=== PATIENT | female | born 2000 | race Caucasian/White ===

== ENCOUNTER 2018-03-20 18:13 | Emergency (ER) | payer OTHER ==
[2018-03-20 18:24] VITALS: BP 120/75; PULSE 97; RESP 18; TEMP 98.4; O2SAT 100
[2018-03-20 18:35] VITALS: BMI 18.4
--- NOTE | 2018-03-20 20:29 | C.PDOC ---
History Of Present Illness 17 y/o female presents to the ED complaining of right ankle pain s/p injury sustained at 12:00pm today. Patient states she tripped and fell on a staircase at work. Since then patient has been able to walk but reports the ankle has become progressively painful and swollen over the past several hours. Denies any numbness, tingling, focal weakness, or other injury. Time Seen by Provider: 03/20/18 18:30 Chief Complaint (Nursing): Lower Extremity Problem/Injury History Per: Patient History/Exam Limitations: no limitations Onset/Duration Of Symptoms: Hrs Current Symptoms Are (Timing): Still Present - Ankle/Foot Description Of Injury: Fell, Twisted Past Medical History Reviewed: Historical Data, Nursing Documentation, Vital Signs Vital Signs: Last Vital Signs Temp 98.4 F 03/20/18 18:40 Pulse 97 H 03/20/18 18:40 Resp 18 03/20/18 18:40 BP 120/75 03/20/18 18:40 Pulse Ox 100 03/20/18 18:40 - Medical History PMH: No Chronic Diseases Surgical History: No Surg Hx Family History: States: No Known Family Hx - Social History Hx Tobacco Use: No Hx Alcohol Use: No Hx Substance Use: No - Immunization History Hx Tetanus Toxoid Vaccination: No Hx Influenza Vaccination: No Hx Pneumococcal Vaccination: No Review Of Systems Except As Marked, All Systems Reviewed And Found Negative. Musculoskeletal: Positive for: Foot Pain (right ankle pain) Skin: Negative for: Lesions, Bruising Neurological: Negative for: Weakness, Numbness, Incoordination Physical Exam - Physical Exam Appears: Non-toxic, No Acute Distress Skin: Normal Color, Warm, Dry Head: Atraumatic, Normacephalic Eye(s): bilateral: Normal Inspection Respiratory: No Accessory Muscle Use, Other (able to speak in full sentences) Extremity: Normal ROM, Tenderness (mild tenderness to the lateral malleolus of right ankle; no tenderness to knee), Capillary Refill (less than 2 sec), No Deformity, Swelling (mild swelling over the lateral malleolus) Pulses: Left Dorsalis Pedis: Normal, Right Dorsalis Pedis: Normal Neurological/Psych: Oriented x3, Normal Motor, Normal Sensation Gait: Steady ED Course And Treatment - Laboratory Results Urine POC: Negative O2 Sat by Pulse Oximetry: 100 (RA) Pulse Ox Interpretation: Normal - Other Rad XR Right Ankle X-Ray: Interpreted by Me, Viewed By Me Interpretation: (-) acute fracture or dislocation XR Right Foot X-Ray: Interpreted by Me, Viewed By Me Interpretation: (-) acute fracture or dislocation Medical Decision Making Medical Decision Making: Plan: * x-ray right ankle * x-ray right foot * Tylenol PO X-rays taken, and are negative. Air cast and crutches given by technical assoc, and checked by me. Patient is stable for discharge home, instructed on ortho follow up. Disposition - Disposition Referrals: Stephen Boswell MD [Staff Provider] - Disposition: HOME/ ROUTINE Disposition Time: 20:28 Condition: STABLE Additional Instructions: Follow up with the Orthopedist if the symptoms continue. Prescriptions: Ibuprofen [Motrin] 1 tab PO TID PRN #30 tab PRN Reason: Pain Instructions: Ankle Sprain (DC) Forms: [facility] (Citizen [place]), School Excuse, Work Excuse - Clinical Impression Clinical Impression: Ankle sprain - PA / [employer] / Resident Statement MD/DO has reviewed & agrees with the documentation as recorded. - Scribe Statement The provider has reviewed the documentation as recorded by the Scribe (Catrachita Beltrán) All medical record entries made by the Scribe were at my direction and personally dictated by me. I have reviewed the chart and agree that the record accurately reflects my personal performance of the history, physical exam, medical decision making, and the department course for this patient. I have also personally directed, reviewed, and agree with the discharge instructions and disposition.
--- NOTE | 2018-03-21 08:51 | RAD ---
Date of service: 03/20/2018 PROCEDURE: Right Ankle Radiographs. HISTORY: ankle injury, pain COMPARISON: None available. FINDINGS: BONES: Normal. No fracture. JOINTS: Normal. No osteoarthritis. Ankle mortise maintained. Talar dome intact SOFT TISSUES: Normal. OTHER FINDINGS: None. IMPRESSION: Normal right ankle radiographs.
--- NOTE | 2018-03-21 08:51 | RAD ---
Date of service: 03/20/2018 PROCEDURE: Right Foot Radiographs. HISTORY: foot injury, pain COMPARISON: None. FINDINGS: BONES: Normal. No fracture. JOINTS: Normal. SOFT TISSUES: Normal. OTHER FINDINGS: None. IMPRESSION: Normal right foot radiographs.
== END 2018-03-20 20:43 | disposition home or self-care (01) ==
LOC: MERGE 18:13 → C.ER 18:13
DX: S93.401A Sprain of unspecified ligament of right ankle, initial encounter (principal); W10.9XXA Fall (on) (from) unspecified stairs and steps, initial encounter; Y92.89 Other specified places as the place of occurrence of the external cause; Y99.0 Civilian activity done for income or pay